=== PATIENT | male | born 1940 | race Caucasian/White ===

== ENCOUNTER 2024-02-07 13:24 | Outpatient (CLI) | payer MEDICARE ==
[~2024-02-07 13:24] MED LIST: Iopamidol 370 76% 100 ML VIAL ONE
== END 2024-02-07 13:25 | disposition home or self-care (01) ==
LOC: CSHCT 13:24
PROVIDERS: ATTEND Internal Medicine Cardiovascular Disease
DX: Z01.810 Encounter for preprocedural cardiovascular examination (principal); I48.19 Other persistent atrial fibrillation; Z95.1 Presence of aortocoronary bypass graft; I24.0 Acute coronary thrombosis not resulting in myocardial infarction; J90 Pleural effusion, not elsewhere classified
CPT/HCPCS: 71275; Q9967